=== PATIENT | female | born 1985 | race Caucasian/White ===

== ENCOUNTER 2016-09-21 11:32 | Emergency (ER) | payer BC ==
--- NOTE | 2016-09-21 12:16 | ED ---
Head Injury - HPI Summary HPI Summary: 31 female presents with complains of feeling confused, foggy, dizzy and having trouble concentrating that started last night and worsened today 09/21/16. Patient states she fell walking out of her house one ice, her feet came out from under her and striking the back left side of her head on a wooden deck. She denies LOC, bumps, bruises and lacerations, however does state she was very confused after the incident that lasted a few minutes. Admits to some soreness in her neck and back. She tried taking aleve or ibuprofen (she can't remember) early this morning without relief. She states the dizziness is worse when she moves around but she is able to walk. Admits to nausea and episode of vomiting yesterday. The nausea comes and goes. She noticed while it work it was hard to concentrate and she became light and noise sensitive. She figured it would be a good idea to come get checked out, as she has a very high tolerance for pain. Describes the headache to be mild dull achey pain in the lower left side of her head. No vision or speech changes. - History Of Current Complaint Chief Complaint: EDHeadInjury Stated Complaint: HEAD INJURY Time Seen by Provider: 09/21/16 11:43 Hx Obtained From: Patient Mechanism Of Injury: Direct Blow Onset/Duration: Started Days Ago, Traumatic Onset of Pain: Minutes, Hours, Post Accident Severity Currently: Mild Severity Initially: Mild Pain Intensity: 3 Pain Scale Used: 0-10 Numeric Location of Head Injury: Occipital - left Location: Discrete At: - left occipital lobe, with radiation down neck/back Character: Dull, Aching Aggravating Factor(s): Movement Alleviating Factor(s): Rest Associated Signs And Symptoms: Confusion, Memory Loss, Neck Pain, Nausea, Vomiting, Headache - Allergies/Home Medications Allergies/Adverse Reactions: Allergies Allergy/AdvReac Type Severity Reaction Status Date / Time Levofloxacin [From Levaquin] Allergy rash/breathing Verified 09/21/16 12:01 problems Metoclopramide [From Reglan] Allergy Anxiety Verified 09/21/16 12:01 PMH/Surg Hx/FS Hx/Imm Hx Endocrine/Hematology History: Denies: Hx Anticoagulant Therapy Cardiovascular History: Denies: Hx Hypertension Respiratory History: Denies: Hx Asthma - Surgical History Surgery Procedure, Year, and Place: none - Immunization History Immunizations Up to Date: Yes Infectious Disease History: No Infectious Disease History: Denies: Traveled Outside the [place] in Last 30 Days - Family History Known Family History: Positive: Diabetes - Social History Alcohol Use: None Substance Use Type: Reports: None Smoking Status (MU): Never Smoked Tobacco Review of Systems Constitutional: Negative Positive: Photophobia ENT: Negative Cardiovascular: Negative Respiratory: Negative Positive: Vomiting, Nausea Positive: Arthralgia - upper back and neck pain, Myalgia Skin: Negative Positive: Headache Psychological: Normal All Other Systems Reviewed And Are Negative: Yes Physical Exam Triage Information Reviewed: Yes Vital Signs On Initial Exam: Initial Vitals Temp Pulse Resp BP Pulse Ox 98.2 F 80 18 128/92 100 09/21/16 11:33 09/21/16 11:33 09/21/16 11:33 09/21/16 11:33 09/21/16 11:33 Vital Signs Reviewed: Yes Appearance: Positive: Well-Appearing - A&Ox3 laying on stretcher comfortably with lights dimmed, No Pain Distress, Well-Nourished Skin: Positive: Warm, Skin Color Reflects Adequate Perfusion, Dry Head/Face: Positive: Normal Head/Face Inspection - no signs of hematoma, lacerations, ecchymosis or obvious deformitites. very minimal tenderness on palpation of left occipital region. no crepitus or step off noted. Eyes: Positive: Normal, EOMI, LOLA, Conjunctiva Clear ENT: Positive: Normal ENT inspection, Hearing grossly normal, Pharynx normal, TMs normal Neck: Positive: Supple, No Lymphadenopathy, Tenderness @ - on palpation of cervical spine and left lateral side. Negative: Nuchal Rigidity Respiratory/Lung Sounds: Positive: Clear to Auscultation, Breath Sounds Present Cardiovascular: Positive: Normal, RRR, Pulses are Symmetrical in both Upper and Lower Extremities. Negative: Leg Edema Left, Leg Edema Right Abdomen Description: Positive: Nontender, No Organomegaly, Soft Bowel Sounds: Positive: Present Musculoskeletal: Positive: Normal, Strength/ROM Intact Neurological: Positive: Normal, Sensory/Motor Intact, Alert, Oriented to Person Place, Time, CN Intact II-III, Reflexes Intact, NV Bundle Intact Distally, Normal Gait, [place] - normal with complaints of feeeling dizzy, Heel to Toe - normal, Finger to Nose - normal, Facial Symmetry, Speech Normal, Other - memory and concentration intact. normal neuro exam.. Negative: Facial Droop, Focal Deficit @ Psychiatric: Positive: Normal, Affect/Mood Appropriate AVPU Assessment: Alert - [place] Coma Scale Best Eye Response: 4 - Spontaneous Best Motor Response: 6 - Obeys Commands Best Verbal Response: 5 - Oriented Coma Scale Total: 15 Diagnostics - Vital Signs Vital Signs Temp Pulse Resp BP Pulse Ox 09/21/16 11:33 98.2 F 80 18 128/92 100 - Laboratory Lab Statement: Any lab studies that have been ordered have been reviewed, and results considered in the medical decision making process. - Radiology thoracic spine Xray Interpretation: No Acute Changes - negative examination Radiology Interpretation Completed By: Radiologist - CT brain CT Interpretation: No Acute Changes - NO ACUTE INTRACRANIAL PATHOLOGY. CT Interpretation Completed By: Radiologist cervical spine CT Interpretation: No Acute Changes - STRAIGHTENING OF THE CERVICAL SPINE, NO EVIDENCE FOR FRACTURE OR SUBLUXATION. CT Interpretation Completed By: Radiologist Re-Evaluation - Re-Evaluation First Eval Re-Evaluation Time: 13:24 Change: Improved - patient feeling better after rest and medications Head Injury Course/Dx Course Of Treatment: CT neck and brain, Thoracic back x-ray obtained and negative. Given meclizine for dizziness. Patient refused pain managment at this time. Will be prescribed some to take at home. educated on concussive symptoms and post-concussive syndrome. rest. low stimulation. follow up with primary care provider. work note. - Diagnoses Differential Diagnosis/HQI/PQRI: Cerebral Contusion, Concussion Without LOC, Contusion, Hematoma, Intracranial Bleed, Skull Fracture Provider Diagnoses: Concussion without loss of consciousness Discharge - Discharge Plan Condition: Stable Disposition: HOME Prescriptions: Ibuprofen TAB* [Motrin TAB* 600 MG] 600 mg PO Q6H PRN #20 tab PRN Reason: Pain Meclizine TAB* [Antivert 12.5 TAB*] 12.5 mg PO TID PRN #15 tab PRN Reason: Dizziness Ondansetron ODT TAB* [Zofran 4 MG Odt TAB*] 4 mg PO Q6H PRN #10 tab.odt PRN Reason: Nausea Patient Education Materials: Concussion (ED), Post Concussion Syndrome (ED) Forms: *Work Release Referrals: No Primary Care Phys,NOPCP [Primary Care Provider] - [facility] [Outside] Additional Instructions: Refrain from physical activity until released by primary care provider. Take prescribed medicatons to help with dizziness and nausea. You can take the Meclizine for dizziness up to three times a day however you do not have to if you feel it is unnecessary. Ibuprofen for headache/pain as needed. Take with food. Rest, drink plenty of fluids and get plenty of sleep. Low-stimulation and low concentration activities. If symptoms worsen, profuse vomiting, blood in vomit, vision loss, severe pain in your head unlike anything you've experienced , like we discussed, please seek medical attention promptly. Make an appointment with primary care provider within the next week, for continuing evaluation and follow up.
--- NOTE | 2016-09-21 12:32 | RAD ---
HISTORY: Left occipital trauma COMPARISONS: None TECHNIQUE: Multiple contiguous axial CT scans were obtained of the head without intravenous contrast. FINDINGS: HEMORRHAGE/INFARCT: There is no hemorrhage or acute infarct. MASSES/SHIFT: There is no mass or shift. EXTRA-AXIAL SPACES: There are no extra-axial fluid collections. SULCI AND VENTRICLES: The sulci and ventricles are normal in size and position for the patient's stated age. CEREBRUM: There are no focal parenchymal abnormalities. BRAINSTEM: There are no focal parenchymal abnormalities. CEREBELLUM: There are no focal parenchymal abnormalities. VESSELS: The vessels are grossly normal. PARANASAL SINUSES: The paranasal sinuses are clear. ORBITS: The orbits are unremarkable. BONES AND SOFT TISSUE: No bone or soft tissue abnormalities are noted. OTHER: None IMPRESSION: NO ACUTE INTRACRANIAL PATHOLOGY.
--- NOTE | 2016-09-21 12:35 | RAD ---
INDICATION: Trauma. COMPARISON: There are no prior studies available for comparison. TECHNIQUE: Contiguous axial sections were obtained from the skull base through the T3 vertebra. Images were reconstructed in the sagittal and coronal planes. FINDINGS: There is straightening of the cervical spine with loss of the normal cervical lordosis. No prevertebral soft tissue swelling or fracture is seen. The intervertebral disc spaces appear maintained. There is no evidence for spinal canal or neural foraminal narrowing. IMPRESSION: STRAIGHTENING OF THE CERVICAL SPINE, NO EVIDENCE FOR FRACTURE OR SUBLUXATION.
[2016-09-21] MEDS ORDERED: Meclizine TAB* 12.5 MG PO ONE (12:46)
[2016-09-21] MEDS ORDERED: Ondansetron ODT TAB* 4 MG PO ONE (12:53)
[2016-09-21 13:12] VITALS: BP 109/73
--- NOTE | 2016-09-21 13:24 | RAD ---
INDICATION: Pain. Injury. COMPARISON: None TECHNIQUE: Routine 2 view imaging was performed FINDINGS: Bones: There are no acute bony findings. There are no significant osteoarthritic findings. Alignment: Normal Disc spaces: The disc spaces are well-maintained Soft tissues: There are no soft tissue abnormalities. IMPRESSION: NEGATIVE EXAMINATION.
== END 2016-09-21 13:49 | disposition home or self-care (01) ==
LOC: ED 11:32
DX: S06.0X0A Concussion without loss of consciousness, initial encounter (principal); R41.0 Disorientation, unspecified; H53.149 Visual discomfort, unspecified; R41.3 Other amnesia; M54.2 Cervicalgia; R11.2 Nausea with vomiting, unspecified; R51 Headache; W00.9XXA Unspecified fall due to ice and snow, initial encounter; Y93.9 Activity, unspecified; Y92.9 Unspecified place or not applicable
CPT/HCPCS: 70450; 72070; 72125; 99283; A9270-GY

== ENCOUNTER 2017-04-04 19:11 | Emergency (ER) | payer BC ==
[2017-04-04 19:18] VITALS: BP 134/85
--- NOTE | 2017-04-04 19:28 | UC ---
Lower Extremity/Ankle HPI - HPI Summary HPI Summary: 31 YEAR OLD FEMALE PRESENTS WITH COMPLAINS OF LEFT ANKLE AND RIGHT WRIST PAIN AFTER FALLING WHILE RUNNING. - History of Current Complaint Chief Complaint: UCLowerExtremity Stated Complaint: ANKLE INJURY Time Seen by Provider: 04/04/17 19:26 Hx Obtained From: Patient Hx Last Menstrual Period: 1 WEEK AGO Onset/Duration: Lasting Days Severity Initially: Moderate Severity Currently: Moderate Pain Scale Used: 0-10 Numeric - 7 Aggravating Factor(s): Standing Alleviating Factor(s): Rest - Allergies/Home Medications Allergies/Adverse Reactions: Allergies Allergy/AdvReac Type Severity Reaction Status Date / Time Levofloxacin [From Levaquin] Allergy rash/breathing Verified 04/04/17 19:18 problems Metoclopramide [From Reglan] Allergy Anxiety Verified 04/04/17 19:18 Home Medications: Home Medications Control* 1 tab PO DAILY 04/04/17 [History Confirmed 04/04/17] Sertraline* [Zoloft*] 100 mg PO DAILY 04/04/17 [History Confirmed 04/04/17] PMH/Surg Hx/FS Hx/Imm Hx Other History Of: Negative For: Anticoagulant Therapy - Surgical History Surgical History: Yes Surgery Procedure, Year, and Place: WISDOM TEETH - Family History Known Family History: Positive: Diabetes - Social History Alcohol Use: Occasionally Substance Use Type: None Smoking Status (MU): Never Smoked Tobacco Review of Systems Constitutional: Negative Skin: Negative Eyes: Negative ENT: Negative Respiratory: Negative Cardiovascular: Negative Gastrointestinal: Negative Genitourinary: Negative Motor: Negative Neurovascular: Negative Musculoskeletal: Other: - RIGHT WRIST PAIN LEFT ANKLE PAIN Neurological: Negative Psychological: Negative All Other Systems Reviewed And Are Negative: Yes Physical Exam Triage Information Reviewed: Yes Vital Signs: Initial Vital Signs Temp 36.9 C 04/04/17 19:14 Pulse 86 04/04/17 19:14 Resp 16 04/04/17 19:14 BP 134/85 04/04/17 19:14 Pulse Ox 100 04/04/17 19:14 Vital Signs Reviewed: Yes Eye Exam: Normal ENT Exam: Normal Dental Exam: Normal Neck exam: Normal Neck: Positive: 1 Respiratory Exam: Normal Cardiovascular Exam: Normal Abdominal Exam: Normal Musculoskeletal: Positive: Other: - RIGHT WRIST SPRAIN LEFT ANKLE SWELLING/PAIN LEFT HEEL PAIN Neurological Exam: Normal Psychological Exam: Normal Skin Exam: Normal Lower Extremity Course/Dx - Differential Dx/Diagnosis Provider Diagnoses: LEFT ANKLE PAIN/SWELLING. LEFT HEEL PAIN. RIGHT WRIST PAIN Discharge - Discharge Plan Condition: Stable Disposition: HOME Prescriptions: Meloxicam(NF) [Mobic(NF)] 7.5 mg PO BID #30 tab Patient Education Materials: Ankle Sprain (ED) Referrals: No Primary Care Phys,NOPCP [Primary Care Provider] - Erika Vences MD [Medical Doctor] -
--- NOTE | 2017-04-04 20:18 | RAD ---
INDICATION: Medial ankle pain after injuries 4 weeks and 2 days ago COMPARISON: None. TECHNIQUE: 3 views of the left ankle were obtained. FINDINGS: The well corticated bones exhibit normal alignment. Joint spaces appear maintained. No fracture is seen. IMPRESSION: Normal ankle radiograph. If the patient's symptoms persist, follow-up imaging is recommended.
--- NOTE | 2017-04-04 20:19 | RAD ---
INDICATION: Ulnar side right wrist pain COMPARISON: None. TECHNIQUE: 3 views right wrist. REPORT: The visualized bones are properly aligned and well corticated. The joint spaces are normal.There is no fracture, dislocation or other focal osseous abnormality. IMPRESSION: Normal radiograph of the right wrist. If the patient's symptoms persist, follow-up imaging is recommended.
== END 2017-04-04 20:50 | disposition home or self-care (01) ==
LOC: UCEAST 19:11
DX: M25.572 Pain in left ankle and joints of left foot (principal); M25.472 Effusion, left ankle; M79.672 Pain in left foot; M25.531 Pain in right wrist; Z88.8 Allergy status to other drugs, medicaments and biological substances
CPT/HCPCS: 99213; G0463

== ENCOUNTER 2017-12-03 19:51 | Emergency (ER) | payer BC ==
[2017-12-03 19:56] VITALS: BP 150/103
[2017-12-03] MEDS ORDERED: Tetracaine 0.5% OPTH.SOL 4 ML* 1 DROP BTL SCH (21:30)
[2017-12-03] MEDS ORDERED: Fluorescein Sod TOPICAL 0.6* 0.6 MG TEST OPHTHALMIC ONE ×2 (21:38→22:04)
--- NOTE | 2017-12-03 22:11 | ED ---
Throat Pain/Nasal Congestion - HPI Summary HPI Summary: Complains of possible foreign body in right eye, right eye pain and blurry vision in right eye starting last night while petting the dog. Patient thinks she may have gotten a dog hair in her eye. Has flushed eye with no resolution of pain. Pain improved this morning and then returned worse. Denies discharge , [place], fever, N/V, ear pain, rash. Positive contact lens. Denies trauma from contact lens. - History of Current Complaint Chief Complaint: EDEyeProblem Time Seen by Provider: 12/03/17 20:39 Hx Obtained From: Patient - Allergies/Home Medications Allergies/Adverse Reactions: Allergies Allergy/AdvReac Type Severity Reaction Status Date / Time levofloxacin [From Levaquin] Allergy See Comment Verified 12/03/17 19:56 metoclopramide [From Reglan] AdvReac Anxiety Verified 12/03/17 19:56 PMH/Surg Hx/FS Hx/Imm Hx Endocrine/Hematology History: Denies: Hx Anticoagulant Therapy Cardiovascular History: Denies: Hx Hypertension Respiratory History: Denies: Hx Asthma - Surgical History Surgery Procedure, Year, and Place: WISDOM TEETH Infectious Disease History: No Infectious Disease History: Denies: Traveled Outside the [place] in Last 30 Days - Family History Known Family History: Positive: Diabetes - Social History Alcohol Use: Occasionally Substance Use Type: Reports: None Smoking Status (MU): Never Smoked Tobacco Review of Systems Constitutional: Negative Positive: Blurred Vision ENT: Negative Cardiovascular: Negative Respiratory: Negative Gastrointestinal: Negative Genitourinary: Negative Musculoskeletal: Negative Skin: Negative Neurological: Negative Psychological: Normal All Other Systems Reviewed And Are Negative: Yes Physical Exam - Summary Physical Exam Summary: round Corneal abrasion in center of pupil 0.5 cm x 0.5 cm with mild horizontal abrasion laterally. No foreign body identified. Triage Information Reviewed: Yes Vital Signs On Initial Exam: Initial Vitals Temp Pulse Resp BP Pulse Ox 98.1 F 90 20 150/103 100 12/03/17 19:53 12/03/17 19:53 12/03/17 19:53 12/03/17 19:53 12/03/17 19:53 Vital Signs Reviewed: Yes Appearance: Positive: Well-Appearing Skin: Positive: Warm Head/Face: Positive: Normal Head/Face Inspection Eyes: Positive: EOMI, LOLA, Conjunctiva Inflammed. Negative: Discharge Neck: Positive: Supple Respiratory/Lung Sounds: Positive: Clear to Auscultation Cardiovascular: Positive: Normal Abdomen Description: Positive: Nontender Musculoskeletal: Positive: Normal Neurological: Positive: Normal Psychiatric: Positive: Normal AVPU Assessment: Alert - [place] Coma Scale Best Eye Response: 4 - Spontaneous Best Motor Response: 6 - Obeys Commands Best Verbal Response: 5 - Oriented Coma Scale Total: 15 Diagnostics - Vital Signs Vital Signs Temp Pulse Resp BP Pulse Ox 12/03/17 19:53 98.1 F 90 20 150/103 100 - Laboratory Lab Statement: Any lab studies that have been ordered have been reviewed, and results considered in the medical decision making process. EENT Course/Dx - Course Course Of Treatment: History of right eye pain and blurry vision starting last night, with possible foreign body in right eye from petting dog. Pain resolved for a while and then returned today worse. Contact lens wear. Exam indicates corneal abrasion. GENt 0.3% 2 drops every 4 hours right eye for 5 days, follow- up with ophthalmology. Patient agrees and understands plan states she will not wear contact lenses until follow-up with ophthalmology - Diagnoses Provider Diagnoses: Corneal abrasion Discharge - Sign-Out/Discharge Documenting (check all that apply): Discharge/Admit/Transfer - Discharge Plan Condition: Stable Disposition: HOME Prescriptions: HYDROcodone/ACETAMIN 5-325 MG* [Bates 5-325 TAB*] 1 tab PO Q6H PRN 2 Days #8 tab MDD 4-6 tabs PRN Reason: Pain Patient Education Materials: Corneal Abrasion (ED) Referrals: No Primary Care Phys,NOPCP [Primary Care Provider] - Ned Galindo MD [Medical Doctor] - Additional Instructions: 2 drops of antibiotic solution and right eye every 4 hours for 5 days. Follow- up with ophthalmology Dr. Galindo. Return to the ED for any new or worsening symptoms - Billing Disposition and Condition Condition: STABLE Disposition: HOME
[2017-12-03] MEDS ORDERED: HYDROcodone/ACETAMIN 5-325 MG* 1 TAB PO ONE (22:13)
[2017-12-03] MEDS ORDERED: Gentamicin 0.3% OPHTH.SOLN* 5 ML BTL RIGHT EYE SCH (22:30)
== END 2017-12-03 22:59 | disposition home or self-care (01) ==
LOC: ED 19:51
DX: S05.01XA Injury of conjunctiva and corneal abrasion without foreign body, right eye, initial encounter (principal); T15.91XA Foreign body on external eye, part unspecified, right eye, initial encounter; H53.8 Other visual disturbances; X58.XXXA Exposure to other specified factors, initial encounter; Y92.9 Unspecified place or not applicable
CPT/HCPCS: 99282; A9270-GY